=== PATIENT | male | born 2000 | race Caucasian/White ===

== ENCOUNTER 2020-02-27 09:31 | Emergency (ER) | payer SELFPAY ==
[~2020-02-27] VITALS: Ht 167.6 cm; Wt 63.5 kg
--- NOTE | 2020-02-27 09:52 | NUR ---
Dr Riley seen pt.
[2020-02-27 09:53] VITALS: BP 132/80
--- NOTE | 2020-02-27 09:53 | NUR ---
Patient discharged to home in stable conditon. Written and verbal after care instructions given. Patient verbalizes understanding of instructions.
== END 2020-02-27 09:53 | disposition home or self-care (01) ==
LOC: ER 09:31
DX: R05 Cough (principal); R52 Pain, unspecified
CPT/HCPCS: A4663

== ENCOUNTER 2020-10-02 09:18 | Emergency (ER) | payer SELFPAY ==
[~2020-10-02] VITALS: Ht 167.6 cm; Wt 59.0 kg
--- NOTE | 2020-10-02 09:28 | NUR ---
PT IS IN ROOM #2A. DR RASHEED EVALUATED THE PT.
--- NOTE | 2020-10-02 09:36 | NUR ---
PT WAS D/C'd TO HOME. D/C INSTRUCTIONS GIVEN TOTHE PT BY DR RASHEED.
[2020-10-02 09:37] VITALS: BP 122/64
== END 2020-10-02 09:38 | disposition home or self-care (01) ==
LOC: ER 09:18
DX: R11.15 Cyclical vomiting syndrome unrelated to migraine (principal); F12.90 Cannabis use, unspecified, uncomplicated
CPT/HCPCS: A4663